=== PATIENT | male | born 1970 | race Caucasian/White ===

== ENCOUNTER 2021-11-05 21:35 | Emergency (ER) | payer OTHER ==
[~2021-11-05] VITALS: Ht 170.2 cm; Wt 86.2 kg
[2021-11-05 21:57] VITALS: BP 138/91
--- NOTE | 2021-11-05 22:04 | NUR ---
PT TAKEN TO LOBBY WAITING FOR BED.
--- NOTE | 2021-11-05 22:45 | NUR ---
PT TAKEN TO BED 11.
--- NOTE | 2021-11-05 23:33 | NUR ---
received pt from intake and placed to bed 11. pt currently a/o x 4, gcs 15. able to move all extremities freely. pt is a 51 year old male with no hx coming from home for cc of diffused abdominal pain x 2 years with some nausea. denies vomiting or diarrhea at this time. abdomen is soft and nontender, no abdominal guarding noted. bowel sounds normoactive on all quads. NAD at this time.
[2021-11-05 23:34] VITALS: BP 142/79
[2021-11-05 23:43] LABS: BASOPHILS % (AUTO) 0.1 % (0.0-2.0); EOSINOPHILS # (AUTO) 0.1 K/uL (0-0.4); HEMATOCRIT 35.9 % (36-52); HEMOGLOBIN 12.2 g/dL (12.0-18.0); LYMPHOCYTES # (AUTO) 1.3 K/uL (2.0-11.5); LYMPHOCYTES % (AUTO) 19.7 % (20.5-51.1); MEAN CORPUSCULAR HEMOGLOBIN 30 pg (27-31); MEAN CORPUSCULAR HGB CONC 34 g/dL (33-37); MONOCYTES # (AUTO) 0.9 K/uL (0.8-1.0); MONOCYTES % (AUTO) 14.4 % (1.7-9.3); NEUTROPHILS # (AUTO) 4.1 K/uL (1.8-7.7); NEUTROPHILS % (AUTO) 63.8 % (42.2-75.2); PLATELET COUNT (AUTO) 212 K/uL (140-450); RED BLOOD CELL COUNT(AUTO) 4.12 MIL/uL (4.20-6.10); RED CELL DISTRIBUTION WIDTH 14.8 % (11.6-13.7); WHITE BLOOD COUNT (AUTO) 6.4 K/uL (4.8-10.8)
[2021-11-06 00:06] LABS: ALBUMIN 3.3 g/dL (3.4-5.0); ANION GAP 12.4 (8-16); CARBON DIOXIDE 25.5 mmol/L (21-32); CREATININE 0.7 mg/dL (0.6-1.3); POTASSIUM 3.9 mmol/L (3.5-5.1); TOTAL BILIRUBIN 0.4 mg/dL (0.0-1.0)
[2021-11-06] MEDS ORDERED: PANT40EC PO (01:25)
--- NOTE | 2021-11-06 01:34 | NUR ---
d/c with [facility]. d/c education given. opportunity to ask questions given and answered. rx of protonix given.
== END 2021-11-06 01:34 | disposition home or self-care (01) ==
LOC: MED 21:35
DX: K44.9 Diaphragmatic hernia without obstruction or gangrene (principal); R14.0 Abdominal distension (gaseous)
CPT/HCPCS: 36415; 80053; 83690; 85025; 99284